=== PATIENT | male | born 1965 | race Hispanic/Latino ===

== ENCOUNTER 2019-10-25 11:48 | Emergency (ER) | payer SELFPAY ==
--- NOTE | 2019-10-25 15:46 | CT ---
EXAM: CT brain without contrast HISTORY: Headache COMPARISON: None TECHNIQUE: Multiple contiguous axial images were obtained and a CT of the brain without contrast. FINDINGS: The brain is normal in morphology and attenuation without focal lesions or confluent areas of infarction. There is no evidence of hydrocephalus, intracranial hemorrhage, or extra-axial fluid collection. The calvarium and overlying soft tissues are unremarkable. The visualized paranasal sinuses and masto id air cells are well aerated. IMPRESSION: No evidence of acute intracranial abnormality
== END 2019-10-25 16:47 | disposition home or self-care (01) ==
LOC: ERS 11:48
DX: R51 Headache (principal); I10 Essential (primary) hypertension
CPT/HCPCS: 70450